=== PATIENT | male | born 1985 | race Caucasian/White ===

== ENCOUNTER 2022-09-28 06:42 | Emergency (ER) | payer OTHER, BC, SELFPAY ==
--- NOTE | 2022-09-28 06:49 | ED_ITS ---
HPI - General Adult General Time Seen by Provider: 06:49 Date Seen: 09/28/22 Chief complaint: Extremity Pain/Injury, Upper Stated complaint: L pinky finger partly amputated Time Seen by Provider: 09/28/22 06:49 Source: patient and RN notes reviewed Mode of arrival: ambulatory Limitations: no limitations History of Present Illness HPI narrative: Mahendra is a very pleasant 37-year-old gentleman who thinks his past tetanus is up-to-date who comes to the emergency room for evaluation of a crush injury to his left pinky. 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 This morning at 0630 Patient did take ibuprofen this morning. He is worried that his finger is amputated. Any touching of the finger increases his discomfort. Patient notes a past history of metformin and lisinopril use but he has not taken this for many months. He also states that he is going to be going to his cabin in the [facility] it which does not have electricity. Related Data Home Medications Medication Instructions Recorded Confirmed No Known Home Medications 09/28/22 09/28/22 Allergies Allergy/AdvReac Type Severity Reaction Status Date / Time No Known Drug Allergies Allergy Verified 09/28/22 07:16 [facility] Medical History (Updated 09/28/22 @ 08:41 by Sade Garay MD) Fatty liver ?K76.0 - Fatty (change of) liver, not elsewhere classified (ICD-10) Hypertension ?I10 - Essential (primary) hypertension (ICD-10) DILIP (obstructive sleep apnea) ?G47.33 - Obstructive sleep apnea (adult) (pediatric) (ICD-10) Surgical History (Updated 09/28/22 @ 07:18 by Chelsi Worthy RN) History of appendectomy ?Z90.49 - Acquired absence of other specified parts of digestive tract (ICD- 10) Exam Narrative: Exam Narrative: Patient is alert. He is in moderate distress. Breathing without difficulty at this time. Examination of his finger shows that there is avulsion of the nail as well as extensive laceration on the nail bed extending onto the finger. There is of moderate amount of blood on his hand. There is no active bleeding at this time. Sensation distally is fully intact. Digital block accomplished. Patient did have moderately good relief of discomfort on medial aspect of finger unfortunately less so on the lateral aspect. Further Bupivicaine was infused with improved anesthesia. Further examination shows extensive nail bed laceration. The nail has could completely avulsed is only attached by a very small piece of superficial skin. Nail bed laceration at least 2 coming across the distal aspect with extension of the laceration along the medial mid area onto the fat pad. Patient has full sensation the distal aspect of his finger. Const: Vital Signs, click to edit/add: Vital Signs - 24 hr 09/28/22 07:04 09/28/22 08:07 Temperature 97.1 F L Pulse Rate [Right Pulse Oximeter] 70 53 L Respiratory Rate 22 14 Blood Pressure [Ri ght Upper Arm] 164/106 H 133/84 Pulse Oximetry 98 18 L Oxygen Delivery Me thod Room Air Room Air Documenting provider has reviewed patient's vital signs: yes Course Course Hospital Course: Discussed with patient's that I would suggest doing a digital block which he agrees to. Bupivicane is used to perform digital block on the left 5th finger. Betadine prep use. Patient tolerated procedure well. Will obtain x-ray. Vital Signs Vital signs: Initial Vital Signs Temperature 97.1 F L 09/28/22 07:04 Temperature Source Temporal Artery Scan 09/28/22 07:04 Pulse Rate 70 09/28/22 07:04 Pulse Rhythm Regular 09/28/22 07:04 Respiratory Rate 22 09/28/22 07:04 Blood Pressure 164/106 H 09/28/22 07:04 Blood Pressure Mean 125 H 09/28/22 07:04 Blood Pressure Position Sitting 09/28/22 07:04 Pulse Oximetry 98 09/28/22 07:04 Oxygen Delivery Method Room Air 09/28/22 07:04 Vital Signs Temperature 97.1 F L 09/28/22 07:04 Pulse Rate 70 09/28/22 07:04 Respiratory Rate 22 09/28/22 07:04 Blood Pressure 164/106 H 09/28/22 07:04 Pulse Oximetry 98 09/28/22 07:04 Oxygen Delivery Method Room Air 09/28/22 07:04 Temperature 97.1 F L 09/28/22 07:04 Pulse Rate 53 L 09/28/22 08:07 Respiratory Rate 14 09/28/22 08:07 Blood Pressure 133/84 09/28/22 08:07 Pulse Oximetry 18 L 09/28/22 08:07 Oxygen Delivery Method Room Air 09/28/22 08:07 Medical Decision Making MDM Narrative Medical decision making narrative: 1. Left 5th finger injury-this involves complete avulsion of the nail, extensive nail bed laceration as well as amanda fracture. I did consult with Orthopedics here at [facility] who felt that it would be best patient was referred to tertiary care. I have spoken with both the hand surgeon and ER physician at [facility] who accepts this patient in transfer for specialty consultation. Patient will have IV placed, be given 1 g of Ancef as well as morphine 2 mg and Zofran 4 mg. Tetanus is 8 years ago and thus will also be updated today. Would ask patient to be NPO at this point. I have offered ambulance but they are would like to go by private vehicle. 2. Disposition-private vehicle transfer to [facility] for specialty consultation. Medical Records Medical records reviewed: Yes I reviewed the patient's medical records Imaging Data Left 5th finger x-ray: Attestation: I have reviewed the pertinent imaging results. My impression: Tuft fracture noted. Radiologist's impression: Findings/Impression: Comminuted crush type fracture present in the distal phalanx of the left 5th finger with adjacent soft tissue injury. Remainder of the exam is unremarkable. Discharge Plan Discharge Clinical Impression: Crush injury Finger fracture Qualifiers: Encounter type: initial encounter Finger: little finger Fracture type: open Phalanx: distal Fracture alignment: displaced Laterality: left Qualified Code(s): S62.637B - Displaced fracture of distal phalanx of left little finger, initial encounter for open fracture Avulsed fingernail Qualifiers: Encounter type: initial encounter Qualified Code(s): S61.309A - Unspecified open wound of unspecified finger with damage to nail, initial encounter Laceration of finger nail bed Qualifiers: Encounter type: initial encounter Qualified Code(s): S61.319A - Laceration without foreign body of unspecified finger with damage to nail, initial encounter Patient Disposition: Xfer Other Condition: Improved Additional Instructions: Proceed to [facility] Emergency Room. Prescriptions: No Action No Known Home Medications Stand Alone Forms: MyHealth Info Instructions
--- NOTE | 2022-09-28 06:54 | CRLHL7_ITS ---
For Patients: As a result of the Cures Act, medical imaging exams and procedure reports are released immediately into your electronic medical record. You may view this report before your referring provider. If you have questions, please contact your health care provider. Indication: Trauma. Technique: Left 5th finger 3 views. Comparison: None. Findings/Impression: Comminuted crush type fracture present in the distal phalanx of the left 5th finger with adjacent soft tissue injury. Remainder of the exam is unremarkable. Dictated by Sigifredo Lechuga MD @ 09/28/2022 7:42:29 AM (Electronically Signed)
[2022-09-28 07:04] VITALS: BP 164/106; PULSE 70; RESP 22; TEMP 36.2; O2SAT 98; BMI 39.6
[2022-09-28] MEDS: BUPIVACAINE 0.5 % 10 ML VIAL INJECTION (07:58)
[2022-09-28 08:07] VITALS: BP 133/84; PULSE 53; RESP 14; O2SAT 18
[2022-09-28] MEDS: ONDANSETRON 2 MG/ML inj 4 MG IVP (09:01)
[2022-09-28] MEDS: MORPHINE 2 MG/ML inj IVP (09:03)
[2022-09-28] MEDS: CEFAZOLIN 1 GM in 0.9 % SODIUM CHLORIDE Mini-bag 100 ML IVPB (09:06)
[2022-09-28] MEDS: TETANUS/DIPHTH/PERTUSSIS 0.5 ML SYRINGE IM (09:08)
== END 2022-09-28 09:32 | disposition other institution (70) ==
PROVIDERS: Emergency Provider Family Medicine; PCP Nurse Practitioner Family
DX: S62.637A Displaced fracture of distal phalanx of left little finger, initial encounter for closed fracture (principal); S61.317A Laceration without foreign body of left little finger with damage to nail, initial encounter; W31.9XXA Contact with unspecified machinery, initial encounter; Y92.63 Factory as the place of occurrence of the external cause; Y99.0 Civilian activity done for income or pay
CPT/HCPCS: 64450; 73140; 90471; 90715; 96374; 96375; 99283; 99284; J0690; J2270; J2405; S0020